=== PATIENT | female | born 1975 | race African-American/Black ===

== ENCOUNTER 2023-11-06 20:28 | Emergency (ER) | payer BC, OTHER ==
[2023-11-06 20:33] VITALS: RESP 20; BMI 56.5
[2023-11-06 21:39] LABS: PH,URINE 5.5 (5.0-8.0); URINE APPEARANCE CLEAR; URINE BILIRUBIN NEGATIVE (NEGATIVE); URINE COLOR YELLOW; URINE GLUCOSE (UA) NEGATIVE (NEGATIVE); URINE KETONE NEGATIVE (NEGATIVE); URINE LEUK ESTERASE NEGATIVE (NEGATIVE); URINE NITRITE NEGATIVE (NEGATIVE); URINE PROTEIN NEGATIVE (NEGATIVE); URINE UROBILINOGEN 0.2 mg/dL (0.2-1.0)
[2023-11-06 21:42] LABS: HCG,QUALITATIVE URINE Negative
[2023-11-06 22:41] LABS: BASO % 0.4 % (0-2.0); EOS % 0.4 % (0-4.5); HEMATOCRIT 35.8 % (32.4-45.2); HEMOGLOBIN 12.1 GM/dL (10.7-15.3); LYMPH % 9.6 % (8-40); MCH 26.8 pg (25.7-33.7); MCHC 33.7 g/dl (32.0-36.0); MEAN CELL VOLUME 79.4 fl (80-96); MEAN PLT VOLUME 8.2 fl (7.5-11.1); MONO % 4.1 % (3.8-10.2); NEUT % 85.5 % (42.8-82.8); PLATELET COUNT 271 10^3/uL (134-434); RBC 4.51 M/mm3 (3.60-5.2); RDW 17.3 % (11.6-15.6)
[2023-11-06] MEDS ORDERED: ACETAMINOPHEN INJECTION 100 ML IVPB ONE (22:46)
[2023-11-06] MEDS ORDERED: ONDANSETRON 4 MG/2 ML VIAL ONE (22:46)
[2023-11-06] MEDS ORDERED: FAMOTIDINE 20 MG/50 ML IVPB 20 MG/50 ML MG IVPB ONE (22:47)
[2023-11-06] MEDS: FAMOTIDINE 20 MG/50 ML IVPB 20 MG/50 ML MG IVPB ONE (22:53)
[2023-11-06] MEDS: ACETAMINOPHEN 1000 MG/100 ML BAG IVPB ONE (22:53)
[2023-11-06] MEDS: ONDANSETRON 4 MG/2 ML VIAL IVPB ONE (22:53)
[2023-11-06 23:03] LABS: CHLORIDE 105 mmol/L (98-107); SODIUM 138 mmol/L (136-145)
[2023-11-06 23:06] LABS: CALCIUM 8.9 mg/dL (8.5-10.1)
[2023-11-06 23:07] LABS: ALBUMIN 3.4 g/dl (3.4-5.0); BLOOD UREA NITROGEN 18.4 mg/dL (7-18); CO2 28 mmol/L (21-32); GLUCOSE,RANDOM 117 mg/dL (74-106)
[2023-11-06 23:10] LABS: CREATININE 0.8 mg/dL (0.55-1.3); SGOT/AST 32 U/L (15-37)
[2023-11-06 23:11] LABS: BILIRUBIN,TOTAL 0.4 mg/dL (0.2-1); TOT PROT 7.9 g/dl (6.4-8.2)
[2023-11-06 23:13] LABS: ALK PHOS 90 U/L (45-117)
[2023-11-06 23:14] LABS: ANION GAP 5 mmol/L (4-13); POTASSIUM 6.6 mmol/L (3.5-5.1)
[2023-11-06 23:18] LABS: SGPT/ALT 20 U/L (13-61)
[2023-11-07 01:22] LABS: ALBUMIN 3.2 g/dl (3.4-5.0); BLOOD UREA NITROGEN 16.6 mg/dL (7-18); CALCIUM 8.5 mg/dL (8.5-10.1)
[2023-11-07 01:26] LABS: CREATININE 0.7 mg/dL (0.55-1.3)
[2023-11-07 01:27] LABS: BILIRUBIN,TOTAL 0.4 mg/dL (0.2-1); TOT PROT 6.8 g/dl (6.4-8.2)
[2023-11-07] MEDS ORDERED: KETOROLAC TROMETHAMINE 15 MG/ML VIAL ONE (03:05)
[2023-11-07] MEDS: KETOROLAC TROMETHAMINE 15 MG/ML VIAL IVPUSH ONE (03:09)
[2023-11-07] MEDS ORDERED: ACETAMINOPHEN 500 MG TABLET (FP) ONE (03:10)
[2023-11-07] MEDS: ACETAMINOPHEN 500 MG TABLET (FP) PO ONE (03:12)
[2023-11-07 04:37] VITALS: BP 154/93; PULSE 102; TEMP 98.6
== END 2023-11-07 04:40 | disposition home or self-care (01) ==
LOC: JER 20:28
PROC: 3E033GC Introduction of Other Therapeutic Substance into Peripheral Vein, Percutaneous Approach (ICD-10-PCS; principal; 2023-11-06)
PROC: 3E033NZ Introduction of Analgesics, Hypnotics, Sedatives into Peripheral Vein, Percutaneous Approach (ICD-10-PCS; 2023-11-06)
PROC: 3E033GC Introduction of Other Therapeutic Substance into Peripheral Vein, Percutaneous Approach (ICD-10-PCS; 2023-11-06)
DX: R10.31 Right lower quadrant pain (principal); R11.2 Nausea with vomiting, unspecified
CPT/HCPCS: 36415; 74177-TC; 80053; 81003; 83690; 84703; 85025; 87086; 87186; 93005; 93010; 99285-25; J0131